=== PATIENT | male | born 1975 | race Hispanic/Latino ===

== ENCOUNTER 2020-11-20 19:21 | Emergency (ER) | payer SELFPAY ==
[~2020-11-20] VITALS: Ht 177.8 cm; Wt 100.0 kg
[2020-11-20] MEDS ORDERED: HYDROCO/APAP1 TA9 PO (21:41)
[2020-11-20] MEDS ORDERED: KEFLEX500 MG PO (21:41)
== END 2020-11-20 21:59 | disposition home or self-care (01) | DRG 605 ==
LOC: ED 19:21
PROC: 0HQGXZZ Repair Left Hand Skin, External Approach (ICD-10-PCS; principal; 2020-11-20)
DX: S61.211A Laceration without foreign body of left index finger without damage to nail, initial encounter (principal); S66.321A Laceration of extensor muscle, fascia and tendon of left index finger at wrist and hand level, initial encounter; W27.1XXA Contact with garden tool, initial encounter

== ENCOUNTER 2021-03-19 21:17 | Observation (INO) | payer SELFPAY ==
[~2021-03-19] VITALS: Ht 177.8 cm; Wt 86.0 kg
[~2021-03-19 21:17] MED LIST: HYDROCO/APAP1 TA9 PO; KEFLEX500 MG PO
--- NOTE | 2021-03-19 21:18 | NUR ---
BY EMS TO ROOM
[2021-03-19 21:42] LABS: HEMATOCRIT 43.5 % (39.0-50.0); HEMOGLOBIN 14.9 g/dl (14.0-18.0); IMMATURE GRANULOCYTES 0.2 % (0.0-5.0); MEAN CELL VOLUME 88.2 fL CALC (80.0-100.0); MEAN CORPUSCULAR HGB 30.2 pG CALC (26.0-32.0); MEAN CORPUSCULAR HGB CONC 34.3 g/dL CAL (32.0-36.0); NEUT# 6.14 thou/uL (1.82-7.42); RED BLOOD COUNT 4.93 mill/uL (4.70-6.10); RED CELL DISTRI WIDTH 12.8 % (11.5-15.5)
--- NOTE | 2021-03-19 22:00 | NUR ---
RESTING COMFORTABLY. AWAITING TEST RESULTS.
[2021-03-19 22:05] LABS: ALBUMIN 4.4 g/dL (3.2-5.0); ALKALINE PHOSPHATASE 152 u/l (38-126); ANION GAP 13 (6-22 (CALC)); BILIRUBIN, TOTAL 0.5 mg/dL (0.0-1.4); BUN 15 mg/dL (9-20); BUN/CREATININE RATIO 22 (12-20 (CALC)); CARBON DIOXIDE 27 mmol/l (22-30); CHLORIDE 100 mmol/l (95-108); CREATININE 0.7 mg/dL (0.7-1.3); ETHYL ALCOHOL 0 mg/dl (0-30); GFR > 60 ML/MIN (>=60 (CALC)); GFR FOR AFR.AMER. > 60 ML/MIN (>=60 (CALC)); POTASSIUM 3.2 mmol/l (3.5-5.1); SGOT/AST 40 u/l (17-59); SODIUM 136 mmol/l (137-146); TOTAL PROTEIN 8.2 g/dL (6.3-8.2)
[2021-03-19 22:16] LABS: MYOGLOBIN 106 ng/mL (0 - 121)
--- NOTE | 2021-03-19 23:00 | NUR ---
NO SIGNIFICANT CHANGE NOTED.
[2021-03-19 23:03] LABS: URINE BILIRUBIN - DIPSTICK NEGATIVE (NEGATIVE); URINE BLOOD DIPSTICK NEGATIVE (NEGATIVE); URINE COLOR YELLOW; URINE GLUCOSE - DIPSTICK >=1000 mg/dL (NEGATIVE); URINE KETONE NEGATIVE (NEGATIVE); URINE LEUK ESTERASE NEGATIVE (NEGATIVE); URINE PROTEIN - DIPSTICK TRACE mg/dL (NEG-TRACE); URINE UROBILINOGEN - DIPSTICK 0.2 E.U./dL (0.2)
[2021-03-19 23:05] LABS: URINE NITRITE - DIPSTICK NEGATIVE (Negative)
[2021-03-20] VITALS (19 sets, daily range): BP systolic 150–198; BP diastolic 70–98
--- NOTE | 2021-03-20 01:15 | NUR ---
NEURO INTACT. NO DEFICITS NOTED.
--- NOTE | 2021-03-20 02:00 | NUR ---
NO CHANGE NOTED. SLEEPING.
--- NOTE | 2021-03-20 03:00 | NUR ---
REMAINS ASLEEP. NO CHANGE NOTED.
--- NOTE | 2021-03-20 03:59 | NUR ---
AROUSES EASILY TO VOICE. APPROPRIATE. NAD.
--- NOTE | 2021-03-20 06:00 | NUR ---
SLEEPING. NAD. IV PATENT.
--- NOTE | 2021-03-20 07:00 | NUR ---
RECIEVED REPORT FROM RN
--- NOTE | 2021-03-20 08:07 | NUR ---
GALLITO ASHER CALLED ASKING FOR UPDATE. PASSCODE PROVIDED.
--- NOTE | 2021-03-20 08:17 | NUR ---
PT RESTING IN SEMI FOWLERS POSITION. PT IS A/O X3. ASSESSMENT AND VITALS COMPLETED. RESIRATIONS ARE EVEN AND UNLABORED ON ROOM AIR. LUNG SOUNDS ARE CLEAR. HEART RHYTHM NORMAL. BOWEL SOUNDS ARE ACTIVE. PULSES STRONG. #20G RAC INFUSING WITH CARDENE PER ORDER, SITE REMAINS HEALTHY AND PATENT. SKIN INTACT. PT COMPLAINS OF 8/10 SUBCALVIAN PAIN. PT MEDICATED PER EMAR. ACCUCHECK REUSLTING IN 310, COVERAGE ADMINISTERED. PT DENIES OF ANY ADDITIONAL NEEDS. ALL SAFETY PRECAUTIONS ARE IN PLACE WITH CALL LIGHT IN REACH. WILL CONTINUE TO MONITOR.
--- NOTE | 2021-03-20 08:46 | NUR ---
BREAKFAST TRAY ORDERED. PT ASSITED WITH SITTING UP ON SIDE OF BED. WATER GIVEN. REPSIRATIOND ARE EVEN AND UNLABORED ON ROOM AIR. #20G RFA INFUSING WITH CARDENE DRIP PER ORDER, SITE REMAINS HEALTHY AND PATENT. BP REUSLTING IN 1620/78, HR 109. SCHEDULED MEDIATIONS ADMINISTERED. PT DENIES OF ANY ADIDITONAL NEEDS AT THSI TIME. ALL SAFETY PRECAUTIONS ARE IN PLACE WITH CALL LIGHT IN REACH.
[2021-03-20 09:04] LABS: HEMOGLOBIN 14.8 g/dl (14.0-18.0); IMMATURE GRANULOCYTES 0.2 % (0.0-5.0); MEAN CORPUSCULAR HGB 30.6 pG CALC (26.0-32.0); MEAN CORPUSCULAR HGB CONC 34.4 g/dL CAL (32.0-36.0); NEUT# 10.3 thou/uL (1.82-7.42); RED BLOOD COUNT 4.83 mill/uL (4.70-6.10); RED CELL DISTRI WIDTH 13.1 % (11.5-15.5)
[2021-03-20 09:06] LABS: ANION GAP 14 (6-22 (CALC)); BUN 17 mg/dL (9-20); BUN/CREATININE RATIO 32 (12-20 (CALC)); CALCULATED LDLCHOLESTEROL 120 mg/dL (62-129 (CALC)); CARBON DIOXIDE 24 mmol/l (22-30); CHLORIDE 104 mmol/l (95-108); CHOLESTEROL HDL RATIO 4.1 (<4.4 (CALC)); CREATININE 0.5 mg/dL (0.7-1.3); GFR > 60 ML/MIN (>=60 (CALC)); GFR FOR AFR.AMER. > 60 ML/MIN (>=60 (CALC)); HDL CHOLESTEROL 44 mg/dL (>=40); MAGNESIUM 1.9 mg/dL (1.6-2.3); POTASSIUM 3.7 mmol/l (3.5-5.1); SODIUM 139 mmol/l (137-146); TOTAL CHOLESTEROL 181 mg/dl (0-199); TOTAL TRIGLYCERIDES 84 mg/dl (30-149); VLDL CHOLESTROL 17 mg/dl (5-56 (CALC))
--- NOTE | 2021-03-20 09:06 | NUR ---
DR BILLINGS AT BEDSIDE
--- NOTE | 2021-03-20 09:12 | NUR ---
ORDER TO ATTEMPT TO WEAN DRIP. CARDENE DRIP DECREASED TO 2.5 MG/HR. CURRENT BP 158/74, HR 112. WILL CONTINUE TO MONITOR
--- NOTE | 2021-03-20 09:27 | NUR ---
BP 150/70, HR 100. PT REMAINS ST ON CARDIAC MONITORING. PT SITTING UP ON SIDE OF STRETCHER. REPSIRATIONS REMAINS EVEN AND UNLABORED. ALL SAFETY PRECAUTIONS ARE IN PLACE WITH CALL LIGHT IN REACH. WILL CONTINUE TO MONITOR.
--- NOTE | 2021-03-20 10:00 | NUR ---
PT RESULTING IN 158/76, HR 96. LY GALINDO DC AT THIS TIME. WILL CONTINUE TO MONITOR
--- NOTE | 2021-03-20 10:40 | NUR ---
BP RESULTING IN 162/78, HR 90-LOW 100'S, OFF OF DRIP. REPSIRATIONS REMAINS EVEN AND UNLABORED WITH NO DISTRESS NOTED ON ROOM AIR. #20GRFA REMAINS IN PLACE. ACCUCHECK REUSLTING IN 296, COVERAGE ADMINISTERED. PT GALLITO HOLBROOK CALLED TO ASSIST WITH TRANSLATION. PT DENIES OF ANY QUESTIONS AND CONCERNS. ALL SAFETY PRECAUTIONS ARE IN PLACE WITH CALL LIGHT IN REACH. WILL CONTINUE TO MONITOR
--- NOTE | 2021-03-20 10:56 | NUR ---
BP REUSLTING IN , HR 100'S. SCHEDULED PO BP MEDICAITIONS ADMINISTERED. CARDIAC MONITORING IN PLACE. WILL CONTINUE TO MONITOR
--- NOTE | 2021-03-20 11:20 | NUR ---
REASSESSMENT OF BP 167/80, HR 83, PT REMAINS SR-ST ON CARDIAC MONITORING. PT REMAINS RESTING IN STRECTHER. ALL SAFETY PECAUTIONS ARE IN PLACE. WILL CONTINUE TO MONITOR
--- NOTE | 2021-03-20 11:54 | NUR ---
REASSESSMENT OF VITALS RESULTING IN T 99.5, BP 163/81, HR 78, O2 97. CRISTAL MOORERP NOTIFIED OF PT STATUS. PT TO BE DOWNGRADED TO MEDSURG. NEW ORDERS TO BE RECIEVED. WILL CONTINUE TO MONITOR
--- NOTE | 2021-03-20 12:17 | NUR ---
BP RESULTING IN 163/89, HR 84. OSCARANVIOLA NOTIFIED OF BP. ORDERS FOR TRANSFER TO MS.
--- NOTE | 2021-03-20 12:31 | NUR ---
FAMILY MEMEBER CALLED TO ASSIST WITH TRANSLATION. PT INFORMED OF ADMIT STATUS. PT AGREED. PT INFORMED ON WAIT TIME FOR BED. PT VERBLAIZED UNDERSTANDING.
--- NOTE | 2021-03-20 13:34 | NUR ---
APRESOLINE 10 IV ADMINISTERED BY PUMA MULTANI FOR BP 172/83, HR 78. PT TOLERATED WELL.
--- NOTE | 2021-03-20 14:03 | NUR ---
PT 166/87, HR 80. PT REMAINS RESTING IN ROOM. RESPIATIONS ARE EVEN AND UNLABORED. NO SIGNS OF ANY DISTRESS.
--- NOTE | 2021-03-20 15:24 | NUR ---
REPORT GIVEN TO PUMA LONGORIA
--- NOTE | 2021-03-20 15:39 | NUR ---
PT TRANSFERED TO [facility] ROOM 260 VIA STRETCHER ACCOMPAINED BY SOCIAL INSURANCE SPECIALIST
--- NOTE | 2021-03-20 15:49 | NUR ---
PT ARRIVED ON FLOOR FROM ED. PT ALERT AND ORIENTED. PT DENIES ANY PAIN OR DISTRESS AT THIS TIME. VS AND ASSESSMENT COMPLETE. WILL ADDRESS ELEVATED BP. IV INTACT AND PATENT. PT AMBULATED TO BATHROOM WITHOUT DISTRESS. SAFETY PRECAUTIONS IN PLACE. CALL LIGHT WITHIN PATIENT'S REACH. WILL MONITOR PT CLOSELY
--- NOTE | 2021-03-20 15:50 | NUR ---
PT TO ROOM VIA BED ACCOMPANIED BY STAFF; AMBULATORY TO BED WITHOUT ASSISTANCE; PT A/OX3; VS AND WT OBTAINED; PT ORIENTED TO ROOM AND CALL SYSTEM; WILL CONTINUE TO MONITOR.
--- NOTE | 2021-03-20 21:59 | NUR ---
PHYSICAL ASSESMENT COMPLETE. PT CURRENTLY DENIES PAIN OR DISCOMFORT. BP STILL REMAIN HIGH AT 198/98. SCHEDULED MEDICATIONS AND PRN MEDICATION ADMINISTERED, SEE E-MAR. PT DENIES ANY NEEDS AT THIS TIME. PLAN OF CARE REVIEWED, PT DENIES QUESTIONS, VERBALIZES UNDERSTANDING. ITEMS WITHIN REACH, BED LOCKED IN LOW POSITION W/ BEDRAILS UP X2. CALL ESPARZA WITHIN REACH, AGREES TO CALL PRN.
--- NOTE | 2021-03-21 | NUR ---
PT LAYING IN BED WITH EYES CLOSED, APPEARS TO BE SLEEPING, APPEARS COMFORTABLE AND IN NO DISTRESS. RESPIRATIONS REGULAR AND UNLABORED. ITEMS REMAIN WITHIN REACH, CALL ESPARZA REMAINS WITHIN REACH. BED REMAINS LOCKED AND IN LOW POSITION WITH BEDRAILS UP X2. WILL CONTINUE TO MONITOR.
[2021-03-21 04:00] VITALS: BP 187/75
[2021-03-21 05:25] LABS: HEMATOCRIT 47.5 % (39.0-50.0); HEMOGLOBIN 15.9 g/dl (14.0-18.0); MEAN CELL VOLUME 90.3 fL CALC (80.0-100.0); MEAN CORPUSCULAR HGB 30.2 pG CALC (26.0-32.0); MEAN CORPUSCULAR HGB CONC 33.5 g/dL CAL (32.0-36.0); RED BLOOD COUNT 5.26 mill/uL (4.70-6.10); RED CELL DISTRI WIDTH 13.4 % (11.5-15.5)
--- NOTE | 2021-03-21 05:33 | NUR ---
PT GIVE HYDRALAZINE FOR INCREASING HIGH BLOOD PRESSURE. WILL CONTINUE TO MONITOR.
[2021-03-21 05:37] LABS: ANION GAP 12 (6-22 (CALC)); BUN 12 mg/dL (9-20); BUN/CREATININE RATIO 24 (12-20 (CALC)); CARBON DIOXIDE 24 mmol/l (22-30); CHLORIDE 106 mmol/l (95-108); CREATININE 0.5 mg/dL (0.7-1.3); GFR > 60 ML/MIN (>=60 (CALC)); GFR FOR AFR.AMER. > 60 ML/MIN (>=60 (CALC)); MAGNESIUM 1.9 mg/dL (1.6-2.3); POTASSIUM 3.6 mmol/l (3.5-5.1); SODIUM 138 mmol/l (137-146)
[2021-03-21 07:34] VITALS: BP 176/94
[2021-03-21] MEDS ORDERED: METFORMIN500 M2 PO (07:42)
[2021-03-21] MEDS ORDERED: AMLODIPINE BESYL5 MG PO (07:42)
[2021-03-21] MEDS ORDERED: LOSARTAN POTASS50 MG PO (07:42)
[2021-03-21] MEDS ORDERED: LOPRESSOR 550 MG/TAB PO (07:42)
[2021-03-21] MEDS ORDERED: GLIPIZIDE XL5 MG PO (07:43)
--- NOTE | 2021-03-21 08:06 | NUR ---
PATIENT IS SITTING IN THE SIDE OF THE BED. ASSESSMENT DONE. PATIENT IS ALERT AND ORIENT X3. PATIENT DENIES PAIN. PATIENT STATED HE HAD A BM YESTERDAY. RESPS EVEN AND UNLABORED. PATIENT ASKING IF HE IS GOING TO BE DC. NOTIFIED PATIENT WE ARE WAITING FOR DOCTOR TO MAKE ROUNDS. PATIENT VERBALIZED UNDERSTANDING. PATIENT DENIES ANY OTHER NEEDS AT THIS TIME. CALL LIGHT IN REACH.
[2021-03-21 11:28] VITALS: BP 185/95
--- NOTE | 2021-03-21 11:32 | NUR ---
EDUCATED PATIENT ON HOW TO USE THE ACCU MONITOR AND HOW TO CHECK HIS BLOOD SUGAR. PATIENT VERBALIZED UNDERSTANDING. MEDICATED PATIENT WITH APRESOLINE FOR BP 185/95. PATIENT DENIES NEEDS. CALL LIGHT IN REACH. NOTIFIED ELIJAH CORNELIUS ABOUT PATIENT BP. HE STATED HE IS AWARE OF PATIENT BP'S.
[2021-03-21 12:50] VITALS: BP 164/92
--- NOTE | 2021-03-21 12:50 | NUR ---
EDDA FROM NUTRITION AT BEDSIDE TO EDUCATED PATIENT ON DIET AND I TRANSLATED.
--- NOTE | 2021-03-21 14:10 | NUR ---
Discharge instructions given. Patient verbalizes understanding of same. Discharged in stable condition via Wheelchair to Home with staff. All belongings sent with pt.
== END 2021-03-21 14:10 | disposition home or self-care (01) | DRG 312 ==
LOC: ED 21:17 → ED-I 23:10 → ED 23:38 → ED-I 23:39 → MS2 03-20 14:33
PROVIDERS: Family Medicine; Nurse Practitioner; ADMIT Internal Medicine; ATTEND Internal Medicine
DX: R55 Syncope and collapse (principal); I10 Essential (primary) hypertension; E11.9 Type 2 diabetes mellitus without complications; Z20.822 Contact with and (suspected) exposure to COVID-19
CPT/HCPCS: G0378; J1650